=== PATIENT | female | born 1950 | race Caucasian/White ===

== ENCOUNTER 2021-06-02 04:22 | Day surgery (SDC) | payer OTHER ==
[2021-05-29 11:51] VITALS: BMI 27.7
[~2021-06-02 04:22] MED LIST: BUPIVACAINE HCL/PF 0.5% (5MG/ML) 10 ML VIAL IJ ONE; IOHEXOL 180 MG/1 ML ML IJ ONE
[2021-06-02] MEDS ORDERED: MIDAZOLAM HCL 2 MG/2 ML SINGLE DOSE VIAL ONE ×2 (12:37)
[2021-06-02] MEDS ORDERED: BUPIVACAINE HCL/PF 0.5% (5MG/ML) 10 ML VIAL IJ ONE (13:08)
[2021-06-02] MEDS ORDERED: IOHEXOL 180 MG/1 ML ML IJ ONE (13:08)
[2021-06-02] MEDS ORDERED: DEXAMETHASONE SOD PHOSPHATE 4 MG/1 ML VIAL NR ONE (13:08)
[2021-06-02 14:54] VITALS: BP 137/68; PULSE 68; TEMP 97.8
== END 2021-06-02 14:09 | disposition home or self-care (01) ==
LOC: JASU-SURG 04:22
PROVIDERS: ATTEND Physical Medicine & Rehabilitation
PROC: 3E0T33Z Introduction of Anti-inflammatory into Peripheral Nerves and Plexi, Percutaneous Approach (ICD-10-PCS; 2021-06-02)
PROC: 3E0T3BZ Introduction of Anesthetic Agent into Peripheral Nerves and Plexi, Percutaneous Approach (ICD-10-PCS; principal; 2021-06-02 12:00)
DX: M47.817 Spondylosis without myelopathy or radiculopathy, lumbosacral region (principal); M54.5 Low back pain
CPT/HCPCS: 76000-TC-FY

== ENCOUNTER 2021-08-25 04:19 | Day surgery (SDC) | payer OTHER ==
[2021-08-22 11:56] VITALS: BMI 27.3
[2021-08-25] MEDS ORDERED: PROPOFOL 20 ML ONE (10:45)
[2021-08-25] MEDS ORDERED: LIDOCAINE HCL/PF 2% SDV 5ML VIAL ONE (10:46)
[2021-08-25] MEDS ORDERED: BUPIVACAINE HCL/PF 0.5% (5 MG/ML) 30 ML VIAL IJ ONE (10:50)
[2021-08-25] MEDS ORDERED: LIDOCAINE HCL 1% PRESERVATIVE FREE - 30ML VIAL IJ ONE (10:50)
[2021-08-25] MEDS ORDERED: DEXAMETHASONE SOD PHOSPHATE 10 MG/1 ML VIAL IVPUSH ONE (10:50)
[2021-08-25 14:08] VITALS: BP 137/69; PULSE 72; TEMP 98.7
== END 2021-08-25 12:15 | disposition home or self-care (01) ==
LOC: JASU-SURG 04:19
PROVIDERS: ATTEND Physical Medicine & Rehabilitation
PROC: 3E0T3TZ Introduction of Destructive Agent into Peripheral Nerves and Plexi, Percutaneous Approach (ICD-10-PCS; principal; 2021-08-25 10:00)
DX: M47.816 Spondylosis without myelopathy or radiculopathy, lumbar region (principal); M54.59 Other low back pain
CPT/HCPCS: 76000-TC-FY; J1100

== ENCOUNTER 2022-05-15 18:25 | Emergency (ER) | payer OTHER ==
[2022-05-15 18:41] VITALS: TEMP 98.5; BMI 26.2
[2022-05-15] MEDS ORDERED: BEBTELOVIMAB (EUA) 175 MG/2 ML VIAL IVPUSH ONE (20:09)
[2022-05-15 22:47] VITALS: BP 145/74; PULSE 79
== END 2022-05-15 22:47 | disposition home or self-care (01) ==
LOC: JER 18:25
DX: U07.1 COVID-19 (principal)
CPT/HCPCS: 99284-25; M0222; Q0222